=== PATIENT | female | born 1965 | race Caucasian/White ===

== ENCOUNTER 2024-03-08 18:59 | Observation (INO) ==
[2024-03-08] MEDS: fentaNYL 100 mcg/2 ml 50 MCG/ML VIAL IV SLOW PU ONE ×2 (19:56→22:24)
[2024-03-08] MEDS: Ondansetron 4 mg VIAL 2 MG/ML 2 ml VIAL IV ONE (20:10)
[2024-03-08] MEDS: Iohexol 350 (CONTRAST) 500 ML MDV IV ONE (20:47)
[2024-03-08] MEDS: Scopolamine 1 mg/72hr PATCH TRANSDERM SCH (21:11)
[2024-03-08] MEDS: Lactated Ringers 1000 ml BAG 1,000 ML IV ONE (21:13)
[2024-03-08] MEDS ORDERED: ceFAZolin 2 GM in NS PREMIX 2 GM/100 ML BAG IVPB ONE (22:17)
[2024-03-08] MEDS: HYDROmorphone 1 MG/1 ML SYRINGE IV ONE (23:19)
[2024-03-08] MEDS: Piperacillin/Tazobac 3.375 BAG 3.375 GM/100 ML BAG IV ONE (23:23)
[2024-03-08] MEDS: ceFAZolin 2 GM PREMIX 2 GM/50 ML BAG IV ONE (23:35)
[2024-03-08 23:41] LABS: ABS Lymphocytes 0.7 10^3/uL (1.0-4.8); ABS Monocytes 0.5 10^3/uL (0.0-0.9); ABS Neutrophils 11.2 10^3/uL (1.5-7.6); Eosinophil % 0.1 %; Hematocrit 37.2 % (35-45); Hemoglobin 12.6 g/dL (11.5-14.3); Lymphocyte % 5.9 %; Mean Corpuscular Hemoglobin 28.7 pg (27-33); Mean Corpuscular Hgb Conc 33.9 g/dL (31-36); Mean Corpuscular Volume 84.5 fL (80-97); Mean Platelet Volume 7.5 fL (7.5-11.2); Platelet Count 285 10^3/uL (150-450); Red Cell Distribution Width 13.3 % (12-17); White Blood Count 12.5 10^3/uL (3.8-11.8)
[2024-03-08] MEDS ORDERED: Zosyn per Pharmacy NOTE FOLLOW UP SCH (23:45)
[2024-03-09 00:04] LABS: Albumin 4.4 g/dL (3.2-5.2); Albumin/Globulin Ratio 1.8 (1-3); Calcium 9.2 mg/dL (8.6-10.3); Creatinine, Serum 0.93 mg/dL (0.51-0.95); Globulin 2.5 g/dL (2-4); Potassium 3.9 mmol/L (3.5-5.0); Total Bilirubin 0.7 mg/dL (0.2-1.0); Total Protein 6.9 g/dL (6.4-8.9); eGFR CKD-EPI 71.2 (>60)
[2024-03-09] MEDS ORDERED: Prochlorperazine 5 mg/ml 2 ml VIAL (10 mg) IV PRN (00:16)
[2024-03-09] MEDS ORDERED: oxyCODONE/Acetamin 5/325 mg TAB PO PRN (00:25)
[2024-03-09] MEDS: HYDROmorphone 1 MG/1 ML SYRINGE IV SLOW PU PRN ×2 (01:39→17:14)
[2024-03-09] MEDS: NS 0.9% 1000 ml BAG 1,000 ML IV SCH (01:40)
[2024-03-09] MEDS: ZOSYN 3.375 GM Q8H per EXTENDED INFUSION IV SCH ×2 (04:21→14:58)
[2024-03-09] MEDS: Ondansetron 4 mg VIAL 2 MG/ML 2 ml VIAL IV PRN (05:58)
[2024-03-09] MEDS ORDERED: Midazolam 5 mg/5 ml VIAL 1 mg/ml 5 ml VIAL (5 mg) ONE (09:20)
[2024-03-09] MEDS ORDERED: fentaNYL 100 mcg/2 ml 50 MCG/ML VIAL ONE (09:20)
[2024-03-09] MEDS ORDERED: Ondansetron 4 mg VIAL 2 MG/ML 2 ml VIAL ONE (09:20)
[2024-03-09] MEDS ORDERED: Propofol 10 MG/ML 20 ML BTL ONE (09:20)
[2024-03-09] MEDS ORDERED: Lidocaine 2% PF 5 ML VIAL ONE (09:20)
[2024-03-09] MEDS ORDERED: Dexamethasone IV 4 MG/ML VIAL 1 ml VIAL ONE (09:20)
[2024-03-09] MEDS ORDERED: ceFAZolin 1 GM in Dextrose 0 GM/0 ML BAG ONE (10:15)
[2024-03-09] MEDS ORDERED: ceFAZolin 2 GM in NS PREMIX 2 GM/100 ML BAG IVPB ONE (10:17)
[2024-03-09] MEDS ORDERED: Bupivacaine 0.25% SDV 30 ML ONE (10:22)
[2024-03-09] MEDS ORDERED: KETAMINE HCL 10 MG/ML 20 ml VIAL (200 MG) ONE (10:41)
[2024-03-09] MEDS ORDERED: Phenylephrine IV 10 MG/ML 1 ml VIAL ONE (11:16)
[2024-03-09] MEDS ORDERED: Glycopyrrolate IV 0.2 MG/ML 1 ML VIAL ONE (11:20)
[2024-03-09] MEDS ORDERED: Naloxone 0.4 mg VIAL 0.4 mg/ml 1 ml VIAL IV PRN (11:47)
[2024-03-09] MEDS ORDERED: fentaNYL 100 mcg/2 ml 50 MCG/ML VIAL IV PRN (11:47)
[2024-03-09] MEDS ORDERED: Ondansetron 4 mg VIAL 2 MG/ML 2 ml VIAL IV PRN (11:47)
[2024-03-09] MEDS ORDERED: Metoclopramide 5 MG/ML VIAL (10 mg) IV PRN (11:47)
[2024-03-09] MEDS ORDERED: NS 0.45% 1000 ml BAG 1,000 ML IV SCH (12:00)
[2024-03-09] MEDS: Acetaminophen IV 1 GM/100ML 1,000 MG/100 ML BAG IV ONE (13:57)
[2024-03-09] MEDS: Buffered Lidocaine 1% SYRIN 1 ml INTRADERM ONE (13:58)
[2024-03-09] MEDS: Lactated Ringers 1000 ml BAG 1,000 ML IV SCH (13:58)
[2024-03-09] MEDS: Scopolamine 1 mg/72hr PATCH TRANSDERM ONE (13:58)
[2024-03-09 16:08] LABS: ABS Lymphocytes 0.5 10^3/uL (1.0-4.8); ABS Monocytes 0.2 10^3/uL (0.0-0.9); ABS Neutrophils 8.4 10^3/uL (1.5-7.6); Eosinophil % 0.1 %; Lymphocyte % 5.4 %; Mean Corpuscular Hemoglobin 29.3 pg (27-33); Mean Corpuscular Hgb Conc 34.4 g/dL (31-36); Mean Corpuscular Volume 85.3 fL (80-97); Platelet Count 242 10^3/uL (150-450); Red Cell Distribution Width 13.4 % (12-17); White Blood Count 9.2 10^3/uL (3.8-11.8)
[2024-03-09 16:23] LABS: Calcium 8.8 mg/dL (8.6-10.3); Magnesium 1.8 mg/dL (1.9-2.7); eGFR CKD-EPI 65.3 (>60)
[2024-03-09] MEDS: Enoxaparin 30 MG/0.3 ML SYR SUBCUT SCH (21:16)
[2024-03-10] MEDS: Acetaminophen IV 1 GM/100ML 1,000 MG/100 ML BAG IV PRN (02:40)
[2024-03-10 06:06] LABS: ABS Lymphocytes 1.2 10^3/uL (1.0-4.8); ABS Monocytes 0.8 10^3/uL (0.0-0.9); ABS Neutrophils 8.6 10^3/uL (1.5-7.6); ABS Nucleated RBC 0.01 10^3/ul; Eosinophil % 0.3 %; Hematocrit 30.4 % (35-45); Hemoglobin 10.6 g/dL (11.5-14.3); Lymphocyte % 11.2 %; Mean Corpuscular Hemoglobin 29.8 pg (27-33); Mean Corpuscular Hgb Conc 34.9 g/dL (31-36); Mean Corpuscular Volume 85.3 fL (80-97); Mean Platelet Volume 8.2 fL (7.5-11.2); Nucleated Red Blood Cells % 0.1 %/100WBC (0.0-0.8); Platelet Count 210 10^3/uL (150-450); Red Blood Count 3.56 10^6/uL (3.63-4.92); Red Cell Distribution Width 13.7 % (12-17); White Blood Count 10.7 10^3/uL (3.8-11.8)
[2024-03-10 07:02] LABS: Calcium 8.8 mg/dL (8.6-10.3); Creatinine, Serum 1.11 mg/dL (0.51-0.95); Magnesium 1.8 mg/dL (1.9-2.7); Potassium 3.9 mmol/L (3.5-5.0); eGFR CKD-EPI 57.6 (>60)
[2024-03-10] MEDS: Acetaminophen IV 1 GM/100ML 1,000 MG/100 ML BAG IV SCH (15:18)
[2024-03-11 09:28] LABS: ABS Eosinophils 0.4 10^3/uL (0.0-0.5); ABS Lymphocytes 1.3 10^3/uL (1.0-4.8); ABS Monocytes 0.5 10^3/uL (0.0-0.9); ABS Neutrophils 5.3 10^3/uL (1.5-7.6); Eosinophil % 4.8 %; Hematocrit 31.8 % (35-45); Hemoglobin 10.9 g/dL (11.5-14.3); Lymphocyte % 17.1 %; Mean Corpuscular Hemoglobin 29.2 pg (27-33); Mean Corpuscular Hgb Conc 34.1 g/dL (31-36); Mean Corpuscular Volume 85.6 fL (80-97); Mean Platelet Volume 7.7 fL (7.5-11.2); Platelet Count 233 10^3/uL (150-450); Red Blood Count 3.72 10^6/uL (3.63-4.92); Red Cell Distribution Width 13.8 % (12-17); White Blood Count 7.4 10^3/uL (3.8-11.8)
[2024-03-11] MEDS: DULoxetine DR 60 mg CAP PO SCH (09:36)
[2024-03-11 09:49] LABS: Calcium 8.5 mg/dL (8.6-10.3); Creatinine, Serum 1.07 mg/dL (0.51-0.95); Potassium 3.5 mmol/L (3.5-5.0); eGFR CKD-EPI 60.2 (>60)
[2024-03-11] MEDS ORDERED: Polyethylene Glycol 3350 17 GM PACKET PO PRN (10:05)
[2024-03-11] MEDS ORDERED: Senna TAB 8.6 mg TAB PO PRN (10:05)
[2024-03-11 18:14] VITALS: BP 133/95
== END 2024-03-11 19:40 | disposition home or self-care (01) ==
LOC: EDHOLD 18:59 → ED 18:59 → MERGE 03-09 00:13 → SSU 03-09 04:27
PROVIDERS: ADMIT Hospitalist; ATTEND Hospitalist